=== PATIENT | female | born 1995 | race Caucasian/White ===

== ENCOUNTER 2019-08-17 07:15 | Emergency (ER) | payer OTHER ==
[2019-08-17 07:52] LABS: Influenza A Molecular NEGATIVE (Negative); Influenza B Molecular NEGATIVE (Negative)
--- NOTE | 2019-08-17 08:22 | UC ---
Complaint Female HPI - HPI Summary HPI Summary: 3 DAYS AGO PATIENT HAD FLULIKE SYMPTOMS INCLUDING COUGH, MALAISE, BODY ACHES, FATIGUE, NAUSEA/VOMITING/DIARRHEA. HAD TEMP 101. THE SYMPTOMS HAVE NOW ALL RESOLVED BUT LAST NIGHT PATIENT DEVELOPED GROSSLY BLOODY URINE. DENIES FLANK PAIN. NO PERSONAL OR FAMILY HISTORY OF KIDNEY STONES. - History Of Current Complaint Chief Complaint: UCGU Stated Complaint: FLU LIKE SYMPTOMS BLOOD IN URINE Time Seen by Provider: 08/17/19 07:26 Hx Obtained From: Patient Hx Last Menstrual Period: IUD Onset/Duration: Gradual Onset, Lasting Days, Still Present Severity Initially: Moderate Severity Currently: Moderate Pain Intensity: 0 Pain Scale Used: 0-10 Numeric Aggravating Factor(s): Nothing Alleviating Factor(s): Nothing Associated Signs And Symptoms: Positive: Nausea, Vomiting(# Of Episodes =). Negative: Fever, Back Pain, Vaginal Bleeding/Discharge - Allergies/Home Medications Allergies/Adverse Reactions: Allergies Allergy/AdvReac Type Severity Reaction Status Date / Time No Known Allergies Allergy Verified 08/17/19 07:27 Home Medications: Home Medications Levonorgestrel (Iud) [Mirena IUD] 20 mcg IU DAILY 08/17/19 [History Confirmed ] PMH/Surg Hx/FS Hx/Imm Hx Previously Healthy: Yes - Surgical History Surgical History: None - Family History Known Family History: Positive: Non-Contributory - Social History Alcohol Use: Occasionally Substance Use Type: None Smoking Status (MU): Never Smoked Tobacco Review of Systems All Other Systems Reviewed And Are Negative: Yes Constitutional: Positive: Fever ENT: Positive: Nasal Discharge Respiratory: Positive: Cough Cardiovascular: Positive: Negative Gastrointestinal: Positive: Vomiting, Diarrhea, Nausea Genitourinary: Positive: Hematuria Physical Exam Triage Information Reviewed: Yes Appearance: Well-Appearing, No Pain Distress, Well-Nourished Vital Signs: Initial Vital Signs Temp 98.3 F 08/17/19 07:24 Pulse 78 08/17/19 07:24 Resp 16 08/17/19 07:24 BP 119/80 08/17/19 07:24 Pulse Ox 100 08/17/19 07:24 Laboratory Tests 08/17/19 08/17/19 07:38 07:40 POC Urine Color Aubree POC Urine Clarity Slightly cloudy POC Urine pH 7.0 POC Ur Specif [place] 1.010 POC Urine Protein 3+ A POC Ur Glucose (UA) Negative POC Urine Ketones Negative POC Urine Blood 3+ A POC Urine Nitrite Negative POC Urine Bilirubin Negative POC Urine Urobilinogen 0.2 POC U Leukocyte Esteras Negative Influenza A (Rapid) Negative Influenza B (Rapid) Negative Eyes: Positive: Conjunctiva Clear ENT: Positive: Hearing grossly normal Neck: Positive: Supple Respiratory: Positive: No respiratory distress, No accessory muscle use Cardiovascular: Positive: Pulses Normal Abdomen Description: Positive: Nontender, Soft. Negative: CVA Tenderness (R), CVA Tenderness (L), Distended, Guarding Musculoskeletal: Positive: No Edema Neurological: Positive: Alert Psychological: Positive: Age Appropriate Behavior Skin: Negative: Rashes Diagnostics - Radiology CT ABD/PELVIS W/O CONTRAST Summary of Radiographic Findings: 1. NO RENAL CALCULI OR EVIDENCE FOR HYDRONEPHROSIS. 2. SMALL AMOUNT OF FREE INTRAPERITONEAL FLUID IN THE PELVIS. Complaint Female Dx - Course Course Of Treatment: PATIENT ARRIVES WITH FLU-LIKE SX AND HEMATURIA. FLU-LIKE SX MOSTLY RESOLVED PRIOR TO ONSET OF BLOODY URINE. FLU SWAB NEGATIVE. CT SCAN GROSSLY UNREMARKABLE. CONCERN FOR A VIRALLY MEDIATED NEPHRITIS. PATIENT TO FOLLOW UP WITH NEPHROLOGY OR UROLOGY IN THE NEXT 1-2 DAYS. CBC, CMP DRAWN. TO THE ER WITHOUT FAIL IF SHE DEVELOPS FEVER, ABDOMINAL PAIN, NAUSEA OR ANY OTHER CONCERNING SYMPTOMS. - Differential Dx/Diagnosis Provider Diagnosis: Hematuria Discharge ED - Sign-Out/Discharge Documenting (check all that apply): Patient Departure All imaging exams completed and their final reports reviewed: Yes - Discharge Plan Condition: Stable Disposition: HOME Patient Education Materials: Hematuria (ED) Referrals: [facility] [Provider Group] - 2 Days Jordi Denton MD [Medical Doctor] - 2 Days Additional Instructions: FLU SWAB NEGATIVE. URINE WITH BLOOD AND PROTEIN. CT SCAN GROSSLY UNREMARKABLE. I'M CONCERNED YOU MAY HAVE A VIRALLY MEDIATED NEPHRITIS OR SOME OTHER INFLAMMATORY CONDITION THAT NEEDS FURTHER EVALUATION. BLOOD COUNT AND METABOLIC PANEL DRAWN TODAY. WE WILL CALL YOU WITH ANY ABNORMAL RESULTS. FOLLOW- UP WITH NEPHROLOGY OR UROLOGY IN THE NEXT 1-2 DAYS. GO TO THE ER WITHOUT FAIL IF YOU DEVELOP ABDOMINAL PAIN, FEVER, RECURRENT NAUSEA OR ANY OTHER CONCERNING SYMPTOMS. - Billing Disposition and Condition Condition: STABLE Disposition: Home
[2019-08-17 09:40] VITALS: BP 116/76
[2019-08-17 13:40] LABS: ABS Eosinophils 0.1 10^3/ul (0-0.6); ABS Lymphocytes 1.1 10^3/ul (1.0-4.8); ABS Monocytes 0.5 10^3/ul (0-0.8); Hematocrit 41 % (35-47); Lymphocyte % 28.9 %; Mean Corpuscular HGB Conc 34 g/dL (31-36); Mean Corpuscular Hemoglobin 31 pg (27-31); Mean Corpuscular Volume 91 fL (80-97); Nucleated Red Blood Cells % 0.1; Platelet Count 220 10^3/uL (150-450); Red Blood Count 4.46 10^6 /uL (3.70-4.87); Red Cell Distribution Width 13 % (10-15); White Blood Count 3.8 10^3/uL (3.5-10.8)
[2019-08-17 13:59] LABS: Albumin 3.6 g/dL (3.2-5.2); Albumin/Globulin Ratio 1.6 (1-3); BUN/Creatinine Ratio 22.6 (8-20); Calcium 9.2 mg/dL (8.6-10.3); EGFR African American 140.8 (>60); EGFR Non-African American 116.4 (>60); Globulin 2.3 g/dL (2-4); Potassium 4.3 mmol/L (3.5-5.0); Total Bilirubin 0.3 mg/dL (0.2-1.0); Total Protein 5.9 g/dL (6.4-8.9)
== END 2019-08-17 10:01 | disposition home or self-care (01) ==
LOC: UCEAST 07:15
DX: R31.9 Hematuria, unspecified (principal); R50.9 Fever, unspecified; R09.89 Other specified symptoms and signs involving the circulatory and respiratory systems; R05 Cough; R11.2 Nausea with vomiting, unspecified; R19.7 Diarrhea, unspecified
CPT/HCPCS: 36415; 74176; 80053; 81003; 85025; 99211; G0463